=== PATIENT | male | born 1955 | race Caucasian/White ===

== ENCOUNTER 2017-08-08 12:50 | Observation (INO) ==
[2017-08-08] MEDS ORDERED: Aspirin 81 MG TAB.CHEW PO STA (13:03)
[2017-08-08] MEDS ORDERED: *HR* LORazepam 2 MG/ML VIAL IVP ONE (13:23)
[2017-08-08 13:32] LABS: Basophils % 0.5 %; Eosinophils # 0.2 K/mcL (0.0-0.6); Eosinophils % 2.4 %; Hematocrit 48.3 % (37.5-50.1); Hemoglobin 15.6 g/dL (12.9-16.9); Immature Granulocytes % 0.2 % (0-4); Lymphocytes # 1.5 K/mcL (0.6-4.6); Lymphocytes % 24.5 %; Mean Corpuscular HGB Conc 32.3 g/dL (31.6-35.5); Mean Corpuscular Hemoglobin 29.7 pg (28.0-33.3); Mean Corpuscular Volume 91.8 fL (83.0-100.0); Mean Platelet Volume 9.7 fL (9.4-12.4); Monocytes # 0.5 K/mcL (0.0-1.3); Monocytes % 7.6 %; Neutrophils # 4.1 K/mcL (1.6-8.9); Platelet Count 188 K/mcL (140-400); Red Blood Count 5.26 M/mcL (4.19-5.50); Red Cell Distribution Width 13.7 % (11.5-14.5); Segmented Neutrophils % 64.8 %
[2017-08-08 13:46] LABS: BUN/Creatinine Ratio 14 (6-26); Blood Urea Nitrogen 13 mg/dL (8-26); Carbon Dioxide 28 mEq/L (19-29); Chloride 107 mEq/L (98-109); Glucose 84 mg/dL (70-99); Osmolality,Calculated 295 (280-300); Potassium 3.7 mEq/L (3.5-4.5); Sodium 143 mEq/L (136-145); eGFR For African Americans > 60 (> 60); eGFR For Non-African Americans > 60 (> 60)
--- NOTE | 2017-08-08 14:40 | Emergency Department Note ---
START Narrative - START START: 1305 Patient seen and examined the time of arrival in conjunction with resident physicians. Patient presented to our emergency room with a complaint of expressive aphasia prior to coming in. Patient had complete resolution of the symptoms on arrival here the emergency room. His pupils sentences in no distress acting normal and acting appropriate. No acute neurologic deficits noted on initial examination. While the evaluation was being completed patient another episode of expressive aphasia resolved within seconds the initial onset. A third event happened here in the emergency room now at 1435. This is approximately 2 hours after the patient presented to the emergency room with complete resolution of symptoms. Patient is now having expressive aphasia that is not resolving. Stroke alert was called at this time. Patient will have stroke evaluation completed. Consultation placed to our neurologist prior to the stroke were being called secondary to the patient's resolution of the symptoms. The long as needed if the patient is admitted to the facility. Accu- Chek was collected and is stable initial labs were all unremarkable patient denies any bleeding history of diaphysis. He has not had any recent large surgeries or traumas. Patient was initially speaking in full sentences and now has expressive aphasia. Vital signs are reviewed and stabilized. IV access obtained. Stroke about to go to the room at this time. CT imaging was done on initial presentation by the patient and the CT imaging was negative possibly 15 minutes prior to the stroke alert being called. Will discuss the patient with on-call [facility] neurologist and discuss disposition and treatment course. Patient is concerning for waxing and waning presentation as well as conversion disorder. Patient may have strokelike symptoms at this time of expressive aphasia. Currently he appears to be a TPA candidate with no acute signs of bleeding or injury. Will discuss this and benefits after [facility] has evaluated. Detailed documentation of these conversations, consultations, imaging, labs as well as EKG and presentation will be documented resident physician's note. My physical exam is otherwise unremarkable with initial NIH stroke scale being 0 along with a repeat stroke evaluation only to be positive for expressive aphasia. Patient does have psychiatric history with medications but otherwise does not have any history of reactions with medications like this. 1442 Stroke symptoms are completely resolved at this time. Patient speaking in full sentences N Accu-Chek was normal. Repeat stroke evaluation to be completed with stat CT of the head. Concern is noted for this being some aspect of conversion disorder or psychiatric-related issue. Patient does not have any acute neurologic deficits at this time. [address] imaging on repeat. CT angiography does not show any acute signs of occlusion or stenosis. Patient discussed with the on-call neurologist from [facility] recommended EEG and admission to our facility for definitive management. Patient will be brought into the hospital for further evaluation treatment
--- NOTE | 2017-08-08 14:45 | Emergency Department Note ---
Addendum entered and electronically signed by Karlos Danielson DO 08/08/17 21:05: Add to history of present illness: 62-year-old male past medical history of hypertension, anxiety, depression reports to the emergency department with concern for expressive aphasia and left-sided facial droop at lunch at [employer]. Patient denies any previous history of strokes but states that his had a stroke a few years prior and he is really concerned that he could not be having a stroke. Patient denies any other symptoms such as chest pain, pressure, tightness, shortness of breath, paresthesias, weakness in the upper or lower extremities, decreased sensation in the face, or understanding of words heard. Patient reports having a previous history of not being able to hear well, but states that this has not worsened. Patient denies any fever or cough or any history of seizures. Patient takes 81 mg of aspirin every day. Review of systems: Refer to history of present illness and negative unless otherwise stated Gen.: No fever Chest: No dyspnea, no chest pain, no palpitations Abdominal: No abdominal pain, no nausea, no vomiting Upper 70s: No weakness, numbness or tingling or decreased strength Lower extremities: No weakness, numbness or tingling or decreased strength Neuro: Expressive aphasia, left-sided facial droop Original Note: Disposition Clinical Impression: Transient cerebral ischemia Qualifiers: Transient cerebral ischemia type: unspecified Qualified Code(s): G45.9 - Transient cerebral ischemic attack, unspecified Disposition: Admitted As Inpatient Condition: Fair Time of Disposition: 15:55 Neuro HPI - General Chief Complaint: ED Neuro Symptoms/Deficit Stated Complaint: TIA Time Seen by Provider: 08/08/17 13:02 Source: patient, EMS Limitations: no limitations Nursing Notes Reviewed: Yes Vital Signs Reviewed: Yes - Related Data Home Medications: Home Medications Medication Instructions Recorded Confirmed Carvedilol 12.5 mg PO BID 08/08/17 08/08/17 Escitalopram [Lexapro] 10 mg PO DAILY 08/08/17 08/08/17 Omeprazole [PriLOSEC] 40 mg PO DAILY 08/08/17 08/08/17 Quinapril/Hydrochlorothiazide 1 each PO BID 08/08/17 08/08/17 [Accuretic 20-12.5 mg Tablet] Allergies/Adverse Reactions: Allergies Allergy/AdvReac Type Severity Reaction Status Date / Time No Known Allergies Allergy Verified 01/17/17 18:32 Past Medical History - Past Medical History Medical history: Reports: hypertension, other Psychiatric history: Reports: anxiety, depression - Social History Smoking Status: Never smoker Smokeless Tobacco Status: No Alcohol use: Reports: occasionally Drug use: Reports: none Physical Exam General: 62-year-old male, anxious appearing, tachypnic Head: autraumatic, EOMI, no conjuncitval pallor, no scleral icterus, Mouth: oral mucous membranes moist Neck: neck soft, trachea midline Chest:: Equal chest wall rise Lungs: Normal lungs sounds bilaterally, no wheezes, no respiratory distress Heart: normal heart sounds, normal rate and rhythm, Abdomen: soft, non-tender, no rigidity, no guarding, no rebdound tenderness Lower Extremities: no pedal edema, calves non-tender Integumentary: Skin warm, dry, and intact Neuro: Alert and oriented to person, place, time, GCS 15, patient had times of expressive aphasia for short periods of time throughout visit. No other focal neurologic abnormalities. Sensation intact throughout, strength 5 out of 5 in upper and lower extremities Psych: Anxious - General Limitations: no limitations General appearance: alert Course Vital Signs Temperature 97.8 F 08/08/17 12:51 Pulse Rate 72 08/08/17 12:51 Respiratory Rate 20 08/08/17 12:51 Blood Pressure 146/99 08/08/17 12:51 O2 Sat by Pulse Oximetry 99 08/08/17 12:51 Temperature 98.3 F 08/08/17 17:48 Pulse Rate 63 08/08/17 17:48 Respiratory Rate 18 08/08/17 17:48 Blood Pressure 166/94 08/08/17 17:48 O2 Sat by Pulse Oximetry 96 08/08/17 17:48 Oxygen Delivery Oxygen Delivery Room Air Neuro Symptoms/Deficit - MDM Narrative Medical decision making narrative: 62-year-old male with past medical history of depression, hypertension, anxiety presents to the emergency department after eating lunch at [employer] with what the family states is concern for stroke. They state that the patient had a left-sided facial droop and issues with expressive aphasia. Patient was brought here via EMS. At time of physical exam, patient was not having any evidence of stroke. There are no focal neurologic deficits. CT scan of the head without contrast was obtained. At the scan was obtained, patient had a repeat episode of expressive aphasia without any facial droop lasting approximately 2 minutes. He was staring off into space. Patient had an NIH of 2 at that time. Patient does not have a previous history of seizures. Patient was given aspirin here in the emergency department. Approximately 30 minutes later, patient had a another episode lasting approximately 5-10 minutes of expressive aphasia. At that time due to the length of this episode, we called stroke alert here in the emergency department. [facility] was consulted, Dr. Porras the neurologist utilized the stroke telecommunication robot tomorrow for a physical exam on the patient. At that time, patient was no longer having any symptoms. TPA was not recommended as patient had a NIH of 0. I consulted our neurologist here in the emergency department for further evaluation of the patient while in patient. CT of the head and neck was performed and did not reveal any evidence of any embolic clots. They revealed mild less than 50% stenosis of the internal carotid artery. Patient's family was very concerned and very anxious throughout her time here and there were several attempts to explain that we were going by all recommendations from neurologist. They express concern due to the mother having a stroke a few years back. At that time, I consulted the hospitalist to admit this patient. He agreed to accept the admission. Patient did not have any TIA symptoms from post telecommunication with the robot. Patient was not in any acute distress at time of admission. Head CTA 08/08/17 14:08 IMPRESSION: Mild, less than 50% stenosis of the internal carotid arteries by NASCET criteria. No intracranial flow-limiting stenosis or aneurysm. Findings were discussed with Karlos Danielson at 3:37 pm on 08/08/2017. D/ / 08/08/2017 15:44:56 Vaishali Canales MD / vikram Interpreting Provider: Vaishali Canales MD Neck CTA 08/08/17 14:08 IMPRESSION: Mild, less than 50% stenosis of the internal carotid arteries by NASCET criteria. No intracranial flow-limiting stenosis or aneurysm. Findings were discussed with Karlos Danielson at 3:37 pm on 08/08/2017. D/ / 08/08/2017 15:44:56 Vaishali Canales MD / vikram Interpreting Provider: Vaishali Canales MD Head CT 08/08/17 14:44 IMPRESSION: No acute intracranial abnormality. Findings were discussed with Karlos Danielson at 3:24 pm on 08/08/2017. D/ / 08/08/2017 15:32:02 Vaishali Canales MD / bharat Interpreting Provider: Vaishali Canales MD Vital Signs Temperature 97.8 F 08/08/17 12:51 Pulse Rate 72 08/08/17 12:51 Respiratory Rate 20 08/08/17 12:51 Blood Pressure 146/99 08/08/17 12:51 O2 Sat by Pulse Oximetry 99 08/08/17 12:51 Temperature 98.3 F 08/08/17 17:48 Pulse Rate 63 08/08/17 17:48 Respiratory Rate 18 08/08/17 17:48 Blood Pressure 166/94 08/08/17 17:48 O2 Sat by Pulse Oximetry 96 08/08/17 17:48 Oxygen Delivery Oxygen Delivery Room Air - Medical Records Medical records reviewed: Yes I reviewed the patient's medical records. - Lab Data Lab results reviewed: Yes I reviewed the patient's lab results. Result diagrams: 08/08/17 13:22 08/08/17 13:22 Lab Results 08/08/17 08/08/17 08/08/17 Range/Units 13:22 13:22 13:22 WBC 6.3 (4.3-11.1) K/mcL RBC 5.26 (4.19-5.50) M/mcL Hgb 15.6 (12.9-16.9) g/dL Hct 48.3 (37.5-50.1) % MCV 91.8 (83.0-100.0) fL MCH 29.7 (28.0-33.3) pg MCHC 32.3 (31.6-35.5) g/dL RDW 13.7 (11.5-14.5) % Plt Count 188 (140-400) K/mcL MPV 9.7 (9.4-12.4) fL Immature Gran % 0.2 (0-4) % Seg Neutrophils % 64.8 % Lymphocytes % 24.5 % Monocytes % 7.6 % Eosinophils % 2.4 % Basophils % 0.5 % Neutrophils # 4.1 (1.6-8.9) K/mcL Lymphocytes # 1.5 (0.6-4.6) K/mcL Monocytes # 0.5 (0.0-1.3) K/mcL Eosinophils # 0.2 (0.0-0.6) K/mcL Basophils # 0.0 (0.0-0.2) K/mcL PT (9.4-12.1) Seconds INR APTT (26.0-36.0) Seconds Sodium 143 (136-145) mEq/L Potassium 3.7 (3.5-4.5) mEq/L Chloride 107 (98-109) mEq/L Carbon Dioxide 28 (19-29) mEq/L BUN 13 (8-26) mg/dL Creatinine 0.92 (0.72-1.25) mg/dL Est GFR ( Amer) > 60 (> 60) Est GFR (Non-Af Amer) > 60 (> 60) BUN/Creatinine Ratio 14 (6-26) Glucose 84 (70-99) mg/dL POC Glucose (58-89) Calculated Osmolality 295 (280-300) Calcium 9.0 (8.6-10.8) mg/dL Troponin I 0.03 (0-0.03) ng/mL 08/08/17 08/08/17 Range/Units 13:22 14:38 WBC (4.3-11.1) K/mcL RBC (4.19-5.50) M/mcL Hgb (12.9-16.9) g/dL Hct (37.5-50.1) % MCV (83.0-100.0) fL MCH (28.0-33.3) pg MCHC (31.6-35.5) g/dL RDW (11.5-14.5) % Plt Count (140-400) K/mcL MPV (9.4-12.4) fL Immature Gran % (0-4) % Seg Neutrophils % % Lymphocytes % % Monocytes % % Eosinophils % % Basophils % % Neutrophils # (1.6-8.9) K/mcL Lymphocytes # (0.6-4.6) K/mcL Monocytes # (0.0-1.3) K/mcL Eosinophils # (0.0-0.6) K/mcL Basophils # (0.0-0.2) K/mcL PT 11.0 (9.4-12.1) Seconds INR 1.0 APTT 29.7 (26.0-36.0) Seconds Sodium (136-145) mEq/L Potassium (3.5-4.5) mEq/L Chloride (98-109) mEq/L Carbon Dioxide (19-29) mEq/L BUN (8-26) mg/dL Creatinine (0.72-1.25) mg/dL Est GFR ( Amer) (> 60) Est GFR (Non-Af Amer) (> 60) BUN/Creatinine Ratio (6-26) Glucose (70-99) mg/dL POC Glucose 101 H (58-89) Calculated Osmolality (280-300) Calcium (8.6-10.8) mg/dL Troponin I (0-0.03) ng/mL - Radiology Data Radiology results reviewed: Yes I reviewed the patient's radiology results. - EKG Data EKG attestation: Yes I reviewed and interpreted this EKG. EKG results narrative: 13:10 Ventricular rate of 66 bpm, OH interval 165 ms, QRS duration 110 ms, QTC 425 ms , QTC 438 ms. Left axis deviation. Sinus rhythm with a ventricular rate of 66 bpm. There are T-wave inversions in lead [address] segment depression of V5 and V6 that is less than 0.5 mm in depth. There is no previous electrocardiogram to compare this study to. NIH Stroke Scale - Level of Consciousness LOC: Alert - LOC Questions LOC Questions: Answers both correctly - LOC Commands LOC Commands: Performs both correctly - Best Gaze Best Gaze: Normal - Visual Visual: No visual loss - Facial Palsy Facial Palsy: Normal - Motor Arms Motor Arm-Left: No drift for 10 seconds Motor Arm-Right: No drift for 10 seconds - Motor Legs Motor Leg-Left: No drift for 5 seconds Motor Leg-Right: No drift for 5 seconds - Limb Ataxia Limb Ataxia: Absent of affected limb too weak to perform exam - Sensory Sensory: Normal - Best Language Best Language: Severe aphasia. Examiner CAN NOT identify pictures from response - Dysarthria Dysarthria: Normal - Extinction and Inattention Extinction and Inattention: Normal - NIHSS Total Score NIHSS Total Score: 2 TPA Checklist - Source Information Source: Patient - Eligibilty for IV tPA 1. LKW equal to or less than 4.5 hours be before treatment: Yes 2. Clinical diagnosis of ischemic stroke causing deficit: No 3. Age 18 years or older: Yes - Contraindications 4. Evidence of intracranial hemorrhage on pretreatment CT: No 5. Presentation suggests subarachnoid hem, even if CT normal: No 6. CT shows multilobar infarction: No 7. Known neoplasm, arteriovenous malformation, or aneurysm: No 8. Significant head trauma (w/ LOC) or CVA in last 3 months: No 9. BP elevated (systolic > 185 or diastolic > 110): No 10. Abnormal Blood Glucose (<50 or >400mg/dl): No 11. Active internal bleeding [PM.TPA15]: No 12. Known bleeding risk (including; not limited to 13-15): No 13. Heparin/argatroban/bivalirudin w/in 48hrs & PTT > normal: No 14. Platelet count less than 100,000/MM3: No 15. Current or recent use of anticoagualants (see protocol): No - Warnings/Precautions Considerations 16. Prior ischemic stroke within last 3 months: No 17. Recent history of intracranial hemorrhage: No 18. : No 19. Current/recent use Effient (7 days) or Brilinta (5 days): No 20. Arterial puncture at non compressible site or LP >7days: No 21. Major surgery or serious trauma in last 14 days: No 22. GI or urinary tract hemorrhage in last 21 days: No 23. HI involving left anterior myocardium in last 3 months: No 24. Suspected or known infective endocarditis/pericarditis: No - LKW: 3-4.5 hrs Add. Warnings/Precautions 21. oral anticoag other than warfarin regardles of last dose: No Critical Care Time Critical Care Time: Yes Total Critical Care Time: 35 Attestation: Critical care performed: Time is exclusive of separately billable procedures. Time includes: direct patient care, patient reassessment, coordination of patient care, interpretation of data (laboratory data, radiology data, and respiratory data), review of patient's medical records, medical consultation and documentation of patient care. Procedures included in critical care time: Procedures excluded from critical care time: Attestation Statement - Attestation Attestation: I, Yandel Magallon DO, examined this patient [id number] and my medical decision-making was reviewed with (Dr. Karlos Danielson, Resident Physician. I agree with the documented findings, disposition and treatment plan as described except to the extent set forth below. Please see my progress notes for details. Please see detailed documentation in my independent charting
[2017-08-08 14:59] LABS: Activated Partial Thrombo Time 29.7 Seconds (26.0-36.0)
[2017-08-08 17:51] VITALS: BP 166/94
[2017-08-08] MEDS ORDERED: Acetaminophen 325 MG TABLET PO PRN (18:29)
[2017-08-08] MEDS ORDERED: Ondansetron 4 MG/2 ML VIAL IVP PRN (18:29)
[2017-08-08] MEDS ORDERED: Naloxone 0.4 MG/ML INJ IVP PRN (18:29)
[2017-08-08] MEDS ORDERED: *HR* HYDROcodone/Acet 5/325 mg TABLET PO PRN (18:29)
--- NOTE | 2017-08-08 18:44 | Internal Med History&Physical ---
<HarrischaritoyolandaDiego baker - Last Filed: 08/08/17 19:21> Date of Encounter: 08/08/17 Time of Encounter: 17:30 Assessment and Plan (1) Transient cerebral ischemia Status: Acute Acute transient cerebral ischemia. Pts. family reports pt. became aphasic at lunch w/right-sided facial droop. CTA of head and neck today shows mild, less than 50% stenosis of the internal carotid arteries by NASCET criteria. No intracranial flow-limiting stenosis or aneurysm. CT of the head today shows no acute intracranial abnormality. Pt. given aspirin in ED. Pt. denies any other anticoagulation. On exam, pt. has no neurological deficits and strengths are equal bilaterally. No facial droop, pronator drift, or other neuro deficits apparent on examination. NIHSS scale. Neuro consult ordered. Neuro checks Q2HR. NPO until ordered dysphagia screen passed successfully. Falls/safety precautions. Will resume pts. PO medications once dysphagia screen passed. Hold patient's quinapril/hydrochlorothiazide and carvedilol to allow for permissive hypertension. Initial troponin 0.03. Will trend 2. Continuous cardiac telemetry. Continue aspirin therapy and other appropriate medications once dysphagia screen is passed. Pt. at high risk for CVA based on reported sx and risk factor of HTN. Observation. Pts. family request pt. to be transferred to [facility] for further work-up and tx. Dr. Elder met w/family who is in agreement w/ plan to transfer. Qualifiers: Transient cerebral ischemia type: unspecified Qualified Code(s): G45.9 - Transient cerebral ischemic attack, unspecified (2) HTN (hypertension) Status: Chronic Hx of chronic HTN. Monitor pt. and VS. Pt. takes quinapril/hydrochlorothiazide and carvedilol for HTN. Will hold HTN medications to allow for permissive hypertension. Qualifiers: Hypertension type: essential hypertension Qualified Code(s): I10 - Essential (primary) hypertension (3) Anxiety and depression Status: Chronic Hx of chronic anxiety and depression. Continue patient's Lexapro once dysphagia screen is passed successfully. (4) DVT prophylaxis Status: Acute Bilateral SCDs on LEs for DVT prophylaxis. Internal Medicine - H&P: HPI Chief complaint: Neuro sx/deficits Admitted From: Emergency Dept Plans for Post Hospital Care: Home History of present illness: Mr. Lemon is a 62 year old male with medical hx of hypertension presents from the ED with chief complaint of neurological symptoms and deficits after eating lunch today. Family states patient had aphasia as well as right-sided facial droop. Pt. denies any previous CVA or sx. Pt. denies recent illness, fever, chills, nausea, vomiting, chest pain, palpitations, abdominal pain, changes in vision, unusual bleeding, lightheadedness, pre-syncope, or syncope. Past Med Surg Social Fam HX - Past Medical History Source: patient, old records reviewed Medical history: hypertension, other Psychiatric history: anxiety, depression - Social History Smoking Status: Never smoker Smokeless Tobacco Status: No Alcohol use: occasionally Drug use: none Current living situation: Home, With Family Activity Level: Independent ambulation Recent Out of Country Travel Within the Last 8 Weeks: No Exposure or Possible Exposure to Illness During Travel: No Internal Medicine - H&P: Meds Carvedilol 12.5 mg PO BID 08/08/17 [History] Escitalopram [Lexapro] 10 mg PO DAILY 08/08/17 [History] Omeprazole [PriLOSEC] 40 mg PO DAILY 08/08/17 [History] Quinapril/Hydrochlorothiazide [Accuretic 20-12.5 mg Tablet] 1 each PO BID [History] 3 Allergy/AdvReac Type Severity Reaction Status Date / Time No Known Allergies Allergy Verified 01/17/17 18:32 All Systems PM: A 10-system review of systems was performed and is negative for pertinent findings except as documented above in the HPI. - Constitutional Constitutional: no chills, no fever(s), no night sweats - EENT Eyes: no change in vision, no discharge, no pain, no photophobia Ears: no ear discharge, no ear pain, no tinnitus Nose, mouth and throat: no dysphagia, no nasal discharge, no neck pain, no sore throat - Breasts Breasts: as per HPI - Cardiovascular Cardiovascular ROS IM: no chest pain, no diaphoresis, no dyspnea, no lightheadedness, no palpitations, no syncope - Respiratory Respiratory: no cough, no dyspnea, no wheezing, no excessive phlegm production - Gastrointestinal Gastrointestinal: no abdominal pain, no diarrhea, no hematemesis, no hematochezia, no melena, no nausea, no vomiting - Genitourinary Genitourinary ROS male: as per HPI - Musculoskeletal Musculoskeletal ROS IM: no numbness, no tingling - Integumentary Integumentary IM: no rash, no unusual bruising - Neurological Neurological ROS: as per HPI, abnormal speech, no confusion, no convulsions, no focal weakness, no numbness, no tingling, no tremor(s) - Psychiatric Psychiatric: as per HPI - Endocrine Endocrine IM: as per HPI - Hematologic/Lymphatic Hematologic/Lymphatic: no easy bruising - Allergic/Immunologic Allergic/Immunologic: as per HPI - Constitutional Vitals: Temp Pulse Resp BP Pulse Ox 98.3 F 63 18 166/94 96 08/08/17 17:48 08/08/17 17:48 08/08/17 17:48 08/08/17 17:48 08/08/17 17:48 General appearance: Present: cooperative, A&O X 3, morbidly obese, pleasant, no acute distress, answers questions appropriately - Head Head exam: Present: atraumatic, normocephalic - Eye Eye exam: Present: PERRL, conjuntiva pink, sclera anicteric Pupils: Present: PERRL - ENT ENT exam: Present: normal exam, normal external ear exam - Neck Neck exam general surgery: Present: normal inspection - Respiratory Respiratory exam: Present: CTAB. Absent: accessory muscle use, rales, rhonchi, wheezes - Cardiovascular Cardiovascular exam: Present: RRR, +S1, +S2. Absent: diastolic murmur, gallop, rubs, systolic murmur - GI/Abdominal GI/Abdominal exam: Present: normal bowel sounds, soft, no peritoneal signs. Absent: distended, tenderness - Rectal Rectal exam: Present: deferred - Additional comments: exam deferred. - Extremities Exam Extremities exam: Present: warm, radial pulses palpable and symmetrical. Absent : calf tenderness, cyanotic, pedal edema - Back Exam Back exam: Present: normal inspection - Neurological Exam Neurological exam: Present: CN II-XII intact, oriented X3, no focal deficits. Absent: pronater drift, facial droop, speech deficit - Psychiatric Psychiatric exam: Present: normal affect, normal mood - Skin Skin exam: Present: dry, intact Internal Med - H&P Results - Labs CBC & Chem 7: 08/08/17 13:22 08/08/17 13:22 - EKG Data EKG shows normal: sinus rhythm - EKG Data Prior EKG available for review: no EKG comments: 08/08/17 18:50 EKG dated 08/08/17 shows sinus rhythm with occasional supraventricular premature complexes and nonspecific ST and T-wave abnormality. Abnormal ECG. - Diagnostic Studies CT scan - head Additional comments: Impressions Head CT 08/08/17 14:44 IMPRESSION: No acute intracranial abnormality. Findings were discussed with Karlos Danielson at 3:24 pm on 08/08/2017. D/ / 08/08/2017 15:32:02 Vaishali Canales MD / bharat Interpreting Provider: Vaishali Canales MD Other Images Additional comments: Impressions Head CTA 08/08/17 14:08 IMPRESSION: Mild, less than 50% stenosis of the internal carotid arteries by NASCET criteria. No intracranial flow-limiting stenosis or aneurysm. Findings were discussed with Karlos Danielson at 3:37 pm on 08/08/2017. D/ / 08/08/2017 15:44:56 Vaishali Canales MD / vikram Interpreting Provider: Vaishali Canales MD Neck CTA 08/08/17 14:08 IMPRESSION: Mild, less than 50% stenosis of the internal carotid arteries by NASCET criteria. No intracranial flow-limiting stenosis or aneurysm. Findings were discussed with Karlos Danielson at 3:37 pm on 08/08/2017. D/ / 08/08/2017 15:44:56 Vaishali Canales MD / vikram Interpreting Provider: Vaishali Canales MD <Mahamed Elder P - Last Filed: 08/11/17 13:57> Date of Encounter: 08/11/17 Internal Medicine - H&P: HPI History of present illness: Mr. Lemon is a 62 year old male All Systems PM: A 10-system review of systems was performed and is negative for pertinent findings except as documented above in the HPI. - Constitutional Vitals: Temp Pulse Resp BP Pulse Ox 98.3 F 63 18 166/94 96 08/08/17 17:48 08/08/17 17:48 08/08/17 17:48 08/08/17 17:48 08/08/17 17:48 Internal Med - H&P Results - Labs CBC & Chem 7: 08/08/17 13:22 08/08/17 13:22 - Attending Attestation I examined this patient and my medical decision-making was reviewed with the Resident Physician/SHED HAND. I agree with the documented findings, disposition and treatment plan as described except to the extent set forth below.
[2017-08-08] MEDS ORDERED: Pantoprazole 40 MG VIAL IVP SCH (18:45)
--- NOTE | 2017-08-08 19:23 | Transfer Summary ---
<HarrischaritoyolandaDiego baker - Last Filed: 08/08/17 21:52> Date of Encounter: 08/08/17 Time of Encounter: 18:30 Transfer Discharge Sum: Diag - Discharge Diagnosis (1) Transient cerebral ischemia Status: Acute Problem details: Acute transient cerebral ischemia. Pts. family reports pt. became aphasic at lunch w/right-sided facial droop. CTA of head and neck today shows mild, less than 50% stenosis of the internal carotid arteries by NASCET criteria. No intracranial flow-limiting stenosis or aneurysm. CT of the head today shows no acute intracranial abnormality. Pt. given aspirin in ED. Pt. denies any other anticoagulation. On exam, pt. has no neurological deficits and strengths are equal bilaterally. No facial droop, pronator drift, or other neuro deficits apparent on examination. NIHSS scale. Neuro consult ordered. Neuro checks Q2HR. NPO until ordered dysphagia screen passed successfully. Falls/safety precautions. Will resume pts. PO medications once dysphagia screen passed. Hold patient's quinapril/hydrochlorothiazide and carvedilol to allow for permissive hypertension. Initial troponin 0.03. Will trend 2. Continuous cardiac telemetry. Continue aspirin therapy and other appropriate medications once dysphagia screen is passed. Pt. at high risk for CVA based on reported sx and risk factor of HTN. Observation. Pts. family request pt. to be transferred to [facility] in [place] for further work-up and tx. Dr. Elder met w/family who is in agreement w/plan to transfer. (2) HTN (hypertension) Status: Chronic Problem details: Hx of chronic HTN. Monitor pt. and VS. Pt. takes quinapril/hydrochlorothiazide and carvedilol for HTN. Will hold HTN medications to allow for permissive hypertension. (3) Anxiety and depression Status: Chronic Problem details: Hx of chronic anxiety and depression. Continue patient's Lexapro once dysphagia screen is passed successfully. (4) DVT prophylaxis Status: Acute Problem details: Bilateral SCDs on LEs for DVT prophylaxis. Transfer Discharge Sum: Med - Medications Active and Home Medications: Home Medications Carvedilol 12.5 mg PO BID 08/08/17 [History Confirmed 08/08/17] Escitalopram [Lexapro] 10 mg PO DAILY 08/08/17 [History Confirmed 08/08/17] Omeprazole [PriLOSEC] 40 mg PO DAILY 08/08/17 [History Confirmed 08/08/17] Quinapril/Hydrochlorothiazide [Accuretic 20-12.5 mg Tablet] 1 each PO BID [History Confirmed 08/08/17] Active Medications Acetaminophen (Tylenol) 650 mg PO Q6HR PRN PRN Reason: Mild Pain (1-3) Stop: 02/07/18 18:30 Hydrocodone Bitart/Acetaminophen ([place] 5-325 Mg) 1 tab PO Q4HR PRN PRN Reason: Moderate Pain (4-6) Stop: 02/07/18 18:30 Carvedilol (Coreg) 12.5 mg PO BIDWM [facility] Stop: 02/07/18 19:01 Escitalopram Oxalate (Lexapro) 10 mg PO DAILY [facility] Stop: 02/08/18 09:01 Naloxone HCl (Narcan) 0.4 mg IVP Q2MIN PRN PRN Reason: Opioid Reversal Stop: 02/07/18 18:30 Ondansetron HCl (Zofran) 4 mg IVP Q8HR PRN PRN Reason: Nausea And Vomiting Stop: 02/07/18 18:30 Pantoprazole Sodium (Protonix) 40 mg IVP DAILY [facility] Stop: 02/07/18 18:46 Pharmacy Profile Note (Patient Taking Own Medication) 0 each PO BID [facility] Stop: 02/07/18 21:01 Transfer Discharge Sum: Data Procedures and tests throughout hospitalization: Pending Orders 08/08/17 18:29 Neurological Assessment [RC] Q2h Peripheral IV [RC] CONT Vital Signs Assessment [RC] Q4H Acetaminophen [Tylenol] 650 mg PO Q6HR PRN HYDROcodone/Acet 5/325 mg [[place] 5-325 mg] 1 tab PO Q4HR PRN Naloxone [Narcan] 0.4 mg IVP Q2MIN PRN Ondansetron [Zofran] 4 mg IVP Q8HR PRN Resuscitation Status: Active [RES] Routine 08/08/17 18:30 Placement to Observation Routine 08/08/17 18:32 Cardiac Monitoring Med/Surg [RC] .CONT 08/08/17 18:33 Consult to Gas Appliance Servicer Helper [CONS] Routine 08/08/17 18:34 Consult to Occupational Therapy [CONS] Routine 08/08/17 18:35 Consult to Physical Therapy [CONS] Routine 08/08/17 18:36 Falls precautions [RC] CONT 08/08/17 18:37 Bed rest w/bedside commode [RC] CONT 08/08/17 18:38 Dysphagia Screen Nursing [RC] ONCE 08/08/17 18:45 Pantoprazole [Protonix] 40 mg IVP DAILY Up with Assist Daily 08/08/17 19:30 Troponin I Q6H 08/08/17 21:00 Carvedilol [Carvedilol] 12.5 mg PO BID Quinapril/Hydrochlorothiazide [Accuretic 20-12.5 mg Tablet] 1 each PO BID 08/09/17 01:30 Troponin I Q6H 08/09/17 04:00 A1C [Hgb A1C] AM 0400 Activated Partial Thrombo Time [COAG] AM 0400 Complete Blood Count [HEME] AM 0400 Comprehensive Metabolic Panel AM 0400 Lipid Panel AM 0400 Magnesium AM 0400 Prothrombin Time INR [COAG] AM 0400 08/09/17 09:00 Escitalopram [Lexapro] 10 mg PO DAILY 08/10/17 04:00 Complete Blood Count [HEME] AM 0400 Comprehensive Metabolic Panel AM 0400 08/11/17 04:00 Complete Blood Count [HEME] AM 0400 Comprehensive Metabolic Panel AM 0400 Transfer Discharge Sum: Prov Date of admission: 08/08/17 16:26 Primary care physician: Jairo Darden DO Consults: 08/08/17 18:33 Consult to [employer] App[employer] Serv[employer] Helper [CONS] Routine Reason for SW Consult: Please assess patient for possible home needs for post -discharge planning. 08/08/17 18:34 Consult to Occupational Therapy [CONS] Routine Comment: Evaluate, develop and implement POC Reason for Consult: Patient reports neuro sx and deficits which started early this afternoon. Please assess for strength, stability, ambulation, and possible assistive needs for post-discharge planning. 08/08/17 18:35 Consult to Physical Therapy [CONS] Routine Comment: Evaluate, develop and implement POC Reason for Consult: Patient reports neuro sx and deficits which started early this afternoon. Please assess for strength, stability, ambulation, and possible assistive needs for post-discharge planning. Transfer Discharge Sum: A/P - Plan Disposition: Transfer [facility] Transfer Discharge Sum: Hosp Hospital course: Mr. Lemon is a 62 year old male with medical hx of hypertension presents from the ED with chief complaint of neurological symptoms and deficits after eating lunch today. Family states patient had aphasia as well as right-sided facial droop. Pt. denies any previous CVA or sx. Pt. denies recent illness, fever, chills, nausea, vomiting, chest pain, palpitations, abdominal pain, changes in vision, unusual bleeding, lightheadedness, pre-syncope, or syncope. - Time Spent with Patient Total time spent providing and/or coordinating transfer services: Transfer Discharge Sum: Exam - Constitutional Vitals: Vital Signs Temp Pulse Resp BP Pulse Ox 08/08/17 17:48 98.3 F 63 18 166/94 96 08/08/17 16:39 70 16 156/85 Intake and Output 08/08/17 08/08/17 08/08/17 07:59 15:59 23:59 Other: Weight 126.609 kg Patient Weight 08/08/17 23:59 Weight 126.609 kg <Mahamed Elder P - Last Filed: 08/11/17 13:57> Date of Encounter: 08/11/17 Transfer Discharge Sum: Med - Medications Active and Home Medications: Home Medications Carvedilol 12.5 mg PO BID 08/08/17 [History Confirmed 08/08/17] Escitalopram [Lexapro] 10 mg PO DAILY 08/08/17 [History Confirmed 08/08/17] Omeprazole [PriLOSEC] 40 mg PO DAILY 08/08/17 [History Confirmed 08/08/17] Quinapril/Hydrochlorothiazide [Accuretic 20-12.5 mg Tablet] 1 each PO BID [History Confirmed 08/08/17] Transfer Discharge Sum: Data Procedures and tests throughout hospitalization: Pending Orders 08/08/17 18:29 Neurological Assessment [RC] Q2h Peripheral IV [RC] CONT Vital Signs Assessment [RC] Q4H Resuscitation Status: Active [RES] Routine 08/08/17 18:30 Placement to Observation Routine 08/08/17 18:32 Cardiac Monitoring Med/Surg [RC] .CONT 08/08/17 18:33 Consult to Gas Appliance Servicer Helper [CONS] Routine 08/08/17 18:34 Consult to Occupational Therapy [CONS] Routine 08/08/17 18:35 Consult to Physical Therapy [CONS] Routine 08/08/17 18:36 Falls precautions [RC] CONT 08/08/17 18:37 Bed rest w/bedside commode [RC] CONT 08/08/17 18:38 Dysphagia Screen Nursing [RC] ONCE 08/08/17 18:45 Up with Assist Daily Transfer Discharge Sum: Prov Date of admission: 08/08/17 16:26 Primary care physician: Jairo Darden DO Consults: 08/08/17 18:33 Consult to [employer] Servicer Helper [CONS] Routine Reason for SW Consult: Please assess patient for possible home needs for post -discharge planning. 08/08/17 18:34 Consult to Occupational Therapy [CONS] Routine Comment: Evaluate, develop and implement POC Reason for Consult: Patient reports neuro sx and deficits which started early this afternoon. Please assess for strength, stability, ambulation, and possible assistive needs for post-discharge planning. 08/08/17 18:35 Consult to Physical Therapy [CONS] Routine Comment: Evaluate, develop and implement POC Reason for Consult: Patient reports neuro sx and deficits which started early this afternoon. Please assess for strength, stability, ambulation, and possible assistive needs for post-discharge planning. Transfer Discharge Sum: Hosp Hospital course: Mr. Lemon is a 62 year old male - Time Spent with Patient Total time spent providing and/or coordinating transfer services:
[2017-08-08] MEDS ORDERED: QUINAPRIL PO SCH (21:00)
[2017-08-08] MEDS ORDERED: HYDROCHLOROTHIAZIDE PO SCH (21:00)
--- NOTE | 2017-08-10 17:30 | Electrocardiograph Report ---
[place] [id number] Test Date: 2017-08-08 Pat Name: Darrel Lemon Department: 102 Room: 3B Gender: M Manager Medical Writing: [place] : 1955 Requested By: Karlos Danielson Order Number: [id number] Reading MD: Gibson Yung MD Measurements Intervals [place] Rate: 66 P: 68 [place]: 165 QRS: -2 QRSD: 110 T: 143 QT: 425 QTc: 438 Interpretive Statements SINUS RHYTHM WITH OCCASIONAL SUPRAVENTRICULAR PREMATURE COMPLEXES Electronically Signed On 08-10-2017 17:28:36 EST by Gibson Yung MD
== END 2017-08-08 20:30 | disposition critical access hospital (66) ==
LOC: EMEROO 12:50 → 3BNU 12:50
PROVIDERS: ADMIT Internal Medicine; ATTEND Registered Nurse